=== PATIENT | male | born 2000 ===

== ENCOUNTER 2023-10-10 17:23 | Emergency (ER) | payer OTHER ==
[2023-10-10] MEDS ORDERED: Lidocaine 1% 5 ML VIAL INJECT ONE (17:53)
[2023-10-10] MEDS: Acetaminophen 500 MG Tab PO ONE (18:16)
[2023-10-10] MEDS: traMADol 50 MG Tab PO ONE (18:17)
[2023-10-10] MEDS: Diphtheria,Pertussis(Acell),Tetanus Vaccine 0.5 ML Syringe IM ONE (18:22)
[2023-10-10] MEDS: Bacitracin Oint 1 GM U/D Packet TOP ONE (18:46)
== END 2023-10-10 18:59 | disposition home or self-care (01) ==
LOC: LL.ED 17:23
DX: S61.215A Laceration without foreign body of left ring finger without damage to nail, initial encounter (principal); F17.210 Nicotine dependence, cigarettes, uncomplicated
CPT/HCPCS: 12001; 99282; 99283; A9270-GY; J3490